=== PATIENT | female | born 1980 | race African-American/Black ===

== ENCOUNTER 2024-08-06 09:54 | Day surgery (SDC) | payer OTHER ==
[2024-08-04 09:01] VITALS: BMI 28.3
[2024-08-04 09:14] LABS: Hematocrit 32.7 % (34.9-44.5); Hemoglobin 10.3 g/dL (12.0-15.5); Mean Corpuscular HGB CONC 31.5 g/dL (32.0-36.0); Mean Corpuscular Hemoglobin 28.2 pg (27.0-33.0); Mean Corpuscular Volume 89.6 fL (81.6-98.3); Mean Platelet Volume 9.4 fL (7.4-10.4); Platelet Count 253 10x3/uL (150-450); RBC Distribution Width 14.6 % (11.5-14.5); Red Blood Cell (RBC) Count 3.65 10x6/uL (3.90-5.03); White Blood Cell (WBC) Count 6.9 10x3/uL (3.5-10.5)
[2024-08-04 09:37] LABS: BHCG - Serum Negative (NEGATIVE); Pregs Control Background? CLEAR/WHITE (CLR/WHITE); Pregs Control Bar Appear? YES (CONTROL BAR)
[2024-08-04 09:40] LABS: Anion Gap 13 mmol/L (10-20); BUN (Urea Nitrogen) 11 mg/dL (7.0-18.7); Calc. Creatinine Clearance 0 mL/min (70-130); Calcium 9.6 mg/dL (7.8-10.44); Carbon Dioxide 22 mmol/L (22-29); Chloride 106 mmol/L (98-107); Estimated GFR 97; Glucose 81 mg/dL (70-105); Potassium 3.9 mmol/L (3.5-5.1); Sodium 137 mmol/L (136-145)
[2024-08-06] MEDS ORDERED: Gabapentin 300 MG CAP ONE (11:14)
[2024-08-06] MEDS ORDERED: Famotidine/PF 20 mg/2ml Vial ONE (11:14)
[2024-08-06] MEDS ORDERED: CeleCOXIB 100 MG CAP ONE (11:14)
[2024-08-06] MEDS ORDERED: SUGAMMADEX SODIUM 200 MG/2 ML VIAL ONE (11:34)
[2024-08-06] MEDS ORDERED: Dexamethasone 4 mg/ml Vial ONE ×2 (11:34→11:37)
[2024-08-06] MEDS ORDERED: Ondansetron PF 4 MG/2 ML Vial ONE ×2 (11:34→17:21)
[2024-08-06] MEDS ORDERED: Lidocaine 2% PF 5 ML VIAL ONE (11:34)
[2024-08-06] MEDS ORDERED: fentaNYL 50 mcg/mL 1 mL Vial ONE ×4 (11:34→16:20)
[2024-08-06] MEDS ORDERED: PROPOFOL 20 ML ONE (11:34)
[2024-08-06] MEDS ORDERED: Rocuronium Bromide 10 MG/ML (10ML VIAL) ONE (11:35)
[2024-08-06] MEDS ORDERED: Bupivacaine HCl 0.5%/Epinephrine 1:200,000/PF 30 ml Vial ONE (11:36)
[2024-08-06] MEDS ORDERED: CEFAZOLIN 2 GM VIAL ONE (11:36)
[2024-08-06] MEDS ORDERED: Midazolam HCl 2 mg/2 ml Vial ONE (11:37)
[2024-08-06] MEDS ORDERED: PHENYLEPHRINE-NS 100 MCG/ML 10 ML SYRINGE ONE ×3 (12:38→14:29)
[2024-08-06] MEDS ORDERED: HYDROcodone/Acetaminophen 5/325 mg Tablet ONE (17:21)
== END 2024-08-06 18:50 | disposition home or self-care (01) ==
LOC: CSHSDC 09:54
PROVIDERS: ATTEND Obstetrics & Gynecology
PROC: 0UT94ZZ Resection of Uterus, Percutaneous Endoscopic Approach (ICD-10-PCS; principal; 2024-08-06)
DX: D25.9 Leiomyoma of uterus, unspecified (principal); N85.01 Benign endometrial hyperplasia; N73.6 Female pelvic peritoneal adhesions (postinfective); D64.9 Anemia, unspecified; Z87.59 Personal history of other complications of pregnancy, childbirth and the puerperium; Z98.890 Other specified postprocedural states; Z91.018 Allergy to other foods; Z79.1 Long term (current) use of non-steroidal anti-inflammatories (NSAID); Z79.899 Other long term (current) drug therapy
CPT/HCPCS: 80048; 84703; 85027; 86850; 86900; 86901; 88307; C9250; J1100; J2250; J2405; J2704; J3010; J3490; S2900

== ENCOUNTER 2025-06-05 05:39 | Day surgery (SDC) | payer OTHER ==
[2025-06-03 11:10] VITALS: BMI 28.8
[2025-06-05] MEDS ORDERED: Bupivacaine HCl 0.5%/Epinephrine 1:200,000/PF 30 ml Vial ONE (06:22)
[2025-06-05] MEDS ORDERED: PROPOFOL 20 ML ONE (06:38)
[2025-06-05] MEDS ORDERED: CEFAZOLIN 2 GM VIAL ONE (06:50)
[2025-06-05] MEDS ORDERED: Ondansetron PF 4 MG/2 ML Vial ONE (07:21)
[2025-06-05] MEDS ORDERED: Bupivacaine/Epinephrine 0.25% 30 ML VIAL ONE (07:29)
== END 2025-06-05 08:54 | disposition home or self-care (01) ==
LOC: CSHSDC 05:39
PROVIDERS: ATTEND Surgery
DX: R59.0 Localized enlarged lymph nodes (principal); D76.3 Other histiocytosis syndromes; Z17.421 Hormone receptor negative with human epidermal growth factor receptor 2 negative status
CPT/HCPCS: 71045; 88305; 88341; 88342; A6258; C1788; J1100; J1642; J2405; J2704; J3010

== ENCOUNTER 2025-07-07 05:44 | Day surgery (SDC) | payer OTHER ==
[2025-07-03 11:41] VITALS: BMI 29.2
[2025-07-07] MEDS ORDERED: Ondansetron PF 4 MG/2 ML Vial ONE (06:20)
[2025-07-07] MEDS ORDERED: Lidocaine 1% PF 5 ML VIAL ONE (06:20)
[2025-07-07] MEDS ORDERED: PROPOFOL 40 ML ONE (06:20)
[2025-07-07] MEDS ORDERED: Bupivacaine HCl 0.5%/Epinephrine 1:200,000/PF 30 ml Vial ONE (06:29)
[2025-07-07] MEDS ORDERED: CEFAZOLIN 2 GM VIAL ONE (06:56)
[2025-07-07] MEDS ORDERED: PHENYLEPHRINE-NS 100 MCG/ML 10 ML SYRINGE ONE (07:12)
[2025-07-07] MEDS ORDERED: Bupivacaine/Epinephrine 0.25% 30 ML VIAL ONE (07:29)
[2025-07-07] MEDS ORDERED: HYDROcodone/Acetaminophen 5/325 mg Tablet ONE (08:34)
== END 2025-07-07 11:51 | disposition home or self-care (01) ==
LOC: CSHSDC 05:44
PROVIDERS: ATTEND Surgery
PROC: 0JH60WZ Insertion of Totally Implantable Vascular Access Device into Chest Subcutaneous Tissue and Fascia, Open Approach (ICD-10-PCS; principal; 2025-07-07)
DX: C50.912 Malignant neoplasm of unspecified site of left female breast (principal); Z91.018 Allergy to other foods
CPT/HCPCS: 71045; A6258; C1788; J1100; J1642; J2704; J3010